=== PATIENT | male | born 1970 | race Caucasian/White ===

== ENCOUNTER 2019-01-06 20:17 | Emergency (ER) | payer OTHER ==
[~2019-01-06] VITALS: Ht 167.6 cm; Wt 60.8 kg
[2019-01-06 20:32] VITALS: BP 131/77
[2019-01-06] MEDS ORDERED: ACETAMINOPHEN 325 MG TABLET PO ONE (21:00)
[2019-01-06] MEDS ORDERED: IBUPROFEN 600 MG TABLET PO ONE ×2 (21:00→21:01)
[2019-01-06] MEDS ORDERED: ACETAMINOPHEN 325 MG TABLET ONE (21:00)
== END 2019-01-06 22:30 | disposition home or self-care (01) ==
LOC: ER 20:37
DX: J06.9 Acute upper respiratory infection, unspecified (principal); Z87.891 Personal history of nicotine dependence
CPT/HCPCS: 71046; 87400